=== PATIENT | male | born 1985 | race Caucasian/White ===

== ENCOUNTER 2018-02-06 12:18 | Emergency (ER) | payer SELFPAY ==
[~2018-02-06] VITALS: Ht 172.7 cm; Wt 81.6 kg
[2018-02-06 12:25] VITALS: BP_SYST 128
--- NOTE | 2018-02-06 12:28 | NUR ---
Patient to ER patel 1 to [facility] for evaluation. Side rails up. Assumed care of patient.
--- NOTE | 2018-02-06 12:45 | NUR ---
ER Dr. Lorenzo at bedside examining patient.
--- NOTE | 2018-02-06 12:53 | NUR ---
Patient was given written and verbal discharge instructions. Patient was discharged into custody of TARUN Haynes. Patient ID band removed.
== END 2018-02-06 12:53 ==
LOC: SED 12:18
DX: F15.90 Other stimulant use, unspecified, uncomplicated (principal); R03.0 Elevated blood-pressure reading, without diagnosis of hypertension
CPT/HCPCS: 99283